=== PATIENT | female | born 1950 | race Caucasian/White ===

== ENCOUNTER → 2017-05-15 | Outpatient (CLI) | payer BC ==
[2016-02-25 11:00] VITALS: BP 117/71
[~2017-05-15] MED LIST: ASPI-630 PO; ATOR40TA59 PO; FEXO180T16 PO; FLUO40CA2 PO
--- NOTE | 2017-05-16 09:09 | KCIC ---
DATE: 05/15/2017 EXAM: MAMMO MARSHALL SCREENING BILATERAL HISTORY: Screening COMPARISON: One year earlier This study was interpreted with the benefit of Computerized Aided Detection (CAD). FINDINGS: Breast Density: SCATTERED The breast parenchyma shows scattered fibroglandular densities. Breast parenchyma level B. There has been little change when compared to the previous exam IMPRESSION: Benign finding BI-RADS CATEGORY: 2 BENIGN FINDING(S) RECOMMENDED FOLLOW-UP: 12M 12 MONTH FOLLOW-UP PQRS compliance statement: Patient information was entered into a reminder system with a target due date 05/15/2018 for the next mammogram. Mammography is a sensitive method for finding small breast cancers, but it does not detect them all and is not a substitute for careful clinical examination. A negative mammogram does not negate a clinically suspicious finding and should not result in delay in biopsying a clinically suspicious abnormality. "Our facility is accredited by the [employer] Mammography Program."
== END | disposition home or self-care (01) ==
LOC: KCIC MAMMO 15:52
PROVIDERS: ATTEND Family Medicine
DX: Z12.31 Encounter for screening mammogram for malignant neoplasm of breast (principal)
CPT/HCPCS: 77063; G0202; 77067

== ENCOUNTER → 2018-02-20 | Outpatient (CLI) | payer BC | END | disposition home or self-care (01) | LOC: KCIC 12:23 | DX: S92.424A Nondisplaced fracture of distal phalanx of right great toe, initial encounter for closed fracture (principal); E78.00 Pure hypercholesterolemia, unspecified; Z90.49 Acquired absence of other specified parts of digestive tract; X58.XXXA Exposure to other specified factors, initial encounter; Y93.89 Activity, other specified; Y92.89 Other specified places as the place of occurrence of the external cause; Y99.8 Other external cause status | CPT/HCPCS: 73660 ==

== ENCOUNTER → 2018-06-12 | Outpatient (CLI) | payer BC, MEDICARE ==
[2016-02-25 11:00] VITALS: BP 117/71
--- NOTE | 2018-06-12 17:44 | KCIC ---
Bilateral digital screening mammograms with 3-D tomosynthesis: Reason for examination: Routine screening. Comparison is made to previous studies dated 05/15/2017 and 05/10/2016. Bilateral mammograms in CC and oblique projections were obtained with 2-D imaging and 3-D tomosynthesis imaging on a Siemens Inspiration unit and reviewed on the workstation. Interpretation was made with the benefit of CAD. The skin and nipples show no abnormalities. No abnormal axillary lymph nodes are seen. The breast parenchyma shows scattered fatty and fibroglandular density. (Breast density: Category B.) There continues to be a small nodule at the 2:00 B position of the left breast which is stable. There are no new dominant masses, suspicious calcifications or architectural distortion. Benign calcifications are present. Impression: No evidence of malignancy. Recommend routine screening. BI-RAD Category 2: Benign. "Our facility is accredited by the [employer] Mammography Program." This patient's information has been entered into a reminder system for the patient to be notified with the results of her examination and a target date for the next mammogram. Electronically signed by: Nina Garrett MD (06/12/2018 5:41 PM) [facility]
== END | disposition home or self-care (01) ==
LOC: KCIC MAMMO 08:32
PROVIDERS: ATTEND Family Medicine
DX: Z12.31 Encounter for screening mammogram for malignant neoplasm of breast (principal)
CPT/HCPCS: 77063; 77067

== ENCOUNTER → 2019-06-17 | Outpatient (CLI) | payer BC ==
[2016-02-25 11:00] VITALS: BP 117/71
--- NOTE | 2019-06-17 19:21 | KCIC ---
Bilateral digital screening mammograms with 3-D tomosynthesis: Reason for examination: Routine screening. Comparison is made to previous studies dated 06/12/2018 and 05/15/2017. Bilateral mammograms in CC and oblique projections were obtained with 2-D imaging and 3-D tomosynthesis imaging on a Siemens Inspiration unit and reviewed on the workstation. Interpretation was made with the benefit of CAD. The skin and nipples show no abnormalities. No abnormal axillary lymph nodes are seen. The breast parenchyma shows scattered fatty and fibroglandular density. (Breast density: Category B.) There continue to be small nodular parenchymal densities in the left breast which have not changed. There are no new dominant masses, suspicious calcifications or architectural distortion. Benign calcifications are present. Impression: No evidence of malignancy. Recommend routine screening. BI-RAD Category 2: Benign. "Our facility is accredited by the [employer] Mammography Program." This patient's information has been entered into a reminder system for the patient to be notified with the results of her examination and a target date for the next mammogram. Electronically signed by: Nina Garrett MD (06/17/2019 7:18 PM) [facility]
== END | disposition home or self-care (01) ==
LOC: KCIC MAMMO 12:49
PROVIDERS: ATTEND Family Medicine
DX: Z12.31 Encounter for screening mammogram for malignant neoplasm of breast (principal); N64.89 Other specified disorders of breast
CPT/HCPCS: 77063; 77067

== ENCOUNTER 2019-08-08 03:58 | Inpatient (IN) | payer BC ==
[~2019-08-08] VITALS: Ht 165.1 cm; Wt 119.3 kg
--- NOTE | 2019-08-08 04:55 | PHYS DOC ---
Past Medical History Past Medical History: CAD, Depression, High Cholesterol, Heart Disease, Hypertension, Other Additional Past Medical Histor: sleep apnea Past Surgical History: Cholecystectomy, Other Additional Past Surgical Histo: breast biopsy, cardiac cath with stent placement Additional Information: Never smoker Alcohol Use: Rarely Drug Use: None Adult General Chief Complaint Chief Complaint: LOWER EXT PAIN HPI HPI Patient is a 68 year old F with history of HTN, heart Dz, HLD presents to the ED with left LE swelling and pain. Onset: 2 days ago. Patient states that the calf pain is 2/10 currently and describes it as a throbbing pain. Pt denies chills, fever, CP, ab pain. Pt reports that she is sedentary and has baseline SOB, but denies any history of clots. Pt denies calf redness, warmth, or trauma to the area. Review of Systems Review of Systems Constitutional: Denies fever or chills Eyes: Denies redness or eye pain HENT: Denies nasal congestion or sore throat Respiratory: Reports shortness of breath Cardiovascular: Denies chest pain or palpitations GI: Denies abdominal pain, nausea, or vomiting : Denies dysuria or hematuria Musculoskeletal: Denies back pain or joint pain. Reports left calf pain. Integument: Denies rash or skin lesions Neurologic: Denies headache, focal weakness or sensory changes Complete systems were reviewed and found to be within normal limits, except as documented in this note. Current Medications Current Medications Current Medications Medications (Trade) Dose Ordered Sig/Hossein Start Time Stop Time Status Last Admin Dose Admin Sodium Chloride 1,000 ml @ 1,000 mls/hr 1X ONCE 08/08/19 05:00 08/08/19 05:59 08/08/19 05:28 1,000 MLS/HR Allergies Allergies Allergies Uncoded Allergies Type Severity Reaction Last Updated Verified excedrin Allergy Intermediate rash 02/23/16 Physical Exam Physical Exam Constitutional: Well developed, well nourished, no acute distress, non-toxic appearance HENT: Normocephalic, atraumatic, oropharynx moist Eyes: Conjunctiva normal, no discharge Neck: Normal range of motion, no tenderness, supple Cardiovascular: Heart rate normal, regular rhythm, 2+ DP and PT pulses b/l Lungs & Thorax: Bilateral breath sounds clear to auscultation, no wheezing Abdomen: Soft, no tenderness Skin: Warm, dry, no erythema, no rash Extremities: No tenderness, ROM intact, no edema, mild tenderness to palpation of left posterior calf, no erythema or deformity noted. Neurologic: Alert and oriented X 3, normal motor function, normal sensory function, no focal deficits noted Psychologic: Affect normal, judgement normal, mood normal Current Patient Data Vital Signs Vital Signs Date Time Temp Pulse Resp B/P (MAP) Pulse Ox O2 Delivery O2 Flow Rate FiO2 08/08/19 04:20 97.9 69 14 155/92 (113) 95 Room Air 97.9 Lab Values Laboratory Tests Test 08/08/19 04:40 08/08/19 05:05 Sodium Level 139 mmol/L (136-145) Potassium Level 4.4 mmol/L (3.5-5.1) Chloride Level 101 mmol/L (98-107) Carbon Dioxide Level 29 mmol/L (21-32) Anion Gap 9 (6-14) Blood Urea Nitrogen 18 mg/dL (7-20) Creatinine 0.9 mg/dL (0.6-1.0) Estimated GFR (Cockcroft-Gault) 61.9 BUN/Creatinine Ratio 20 (6-20) Glucose Level 140 mg/dL (70-99) H Calcium Level 8.8 mg/dL (8.5-10.1) Magnesium Level 1.9 mg/dL (1.8-2.4) Total Bilirubin 0.5 mg/dL (0.2-1.0) Aspartate Amino Transferase (AST) 25 U/L (15-37) Alanine Aminotransferase (ALT) 24 U/L (14-59) Alkaline Phosphatase 136 U/L (46-116) H Creatine Kinase 86 U/L (26-192) Creatine Kinase MB (Mass) < 0.5 ng/mL (0.0-3.6) Creatine Kinase MB Relative Index % (0-4) Troponin I Quantitative < 0.017 ng/mL (0.000-0.055) BZ-Mxj-J-Type Natriuretic Peptide 87 pg/mL (0-124) Total Protein 6.5 g/dL (6.4-8.2) Albumin 3.4 g/dL (3.4-5.0) Albumin/Globulin Ratio 1.1 (1.0-1.7) White Blood Count 7.0 x10^3/uL (4.0-11.0) Red Blood Count 4.67 x10^6/uL (3.50-5.40) Hemoglobin 13.3 g/dL (12.0-15.5) Hematocrit 39.9 % (36.0-47.0) Mean Corpuscular Volume 86 fL (79-100) Mean Corpuscular Hemoglobin 29 pg (25-35) Mean Corpuscular Hemoglobin Concent 33 g/dL (31-37) Red Cell Distribution Width 13.8 % (11.5-14.5) Platelet Count 128 x10^3/uL (140-400) L Neutrophils (%) (Auto) 64 % (31-73) Lymphocytes (%) (Auto) 21 % (24-48) L Monocytes (%) (Auto) 8 % (0-9) Eosinophils (%) (Auto) 6 % (0-3) H Basophils (%) (Auto) 1 % (0-3) Neutrophils # (Auto) 4.5 x10^3/uL (1.8-7.7) Lymphocytes # (Auto) 1.5 x10^3/uL (1.0-4.8) Monocytes # (Auto) 0.6 x10^3/uL (0.0-1.1) Eosinophils # (Auto) 0.4 x10^3/uL (0.0-0.7) Basophils # (Auto) 0.1 x10^3/uL (0.0-0.2) Prothrombin Time 13.6 SEC (11.7-14.0) Prothrombin Time INR 1.1 (0.8-1.1) Activated Partial Thromboplast Time 28 SEC (24-38) D-Dimer (Ramona) 3.68 ug/mlFEU (0.00-0.50) H Laboratory Tests 08/08/19 05:05 Laboratory Tests 08/08/19 04:40 EKG EKG @0502, NSR at 66bpm, No STEMI. Radiology/Procedures Radiology/Procedures PROCEDURE: VENOUS LOWER EXTREMITY LEFT Left lower extremity venous duplex Doppler ultrasound HISTORY: Left leg pain and swelling. FINDINGS: No DVT by grayscale imaging with compressibility, patent color Doppler blood flow and augmentation of blood flow of the left common femoral vein, profunda femoral vein, superficial femoral vein and popliteal vein. No DVT with patent color Doppler blood flow the left posterior tibial and peroneal veins. IMPRESSION: Negative left leg for DVT. Electronically signed by: Roverto Goldman MD (08/08/2019 5:33 AM) [facility] Course & Med Decision Making Course & Med Decision Making Pertinent Labs and Imaging studies reviewed. (See chart for details) Pt is a 68yo female with h/o HTN, Heart Dz, HLD presents with left calf pain and swelling for 2 days. Pt also endorses SOB, cold and cough symptoms and sedentary life style. Cannot exclude DVT and PE. Venous Doppler US negative. Ddimer elevated at 3, CTA chest pending. Troponin WNL. EKG stable. HEART score 4. Sign out given to Dr. Kuo for further evaluation and final disposition. Discussed current findings and plan with patient and family, who acknowledge understanding and agreement. Dragon Disclaimer Dragon Disclaimer This electronic medical record was generated, in whole or in part, using a voice recognition dictation system. Departure Departure Impression: Primary Impression: Leg pain Additional Impression: Shortness of breath Referrals: PEDRO LUIS CAMPOS MD (PCP) The HEART Score for CP Pts HEART Score for Chest Pain: HEART Score for Chest Pain Response (Comments) Value History Slighlty/Non-Suspicious 0 ECG Normal 0 Age > 65 2 Risk Factors >3 Risk Factors or Hx CAD 2 Troponin < Normal Limit 0 Total 4 Risk Factors: Risk Factors: DM, Current or recent (<one month) smoker, HTN, HLP, family history of CAD, obesity. Risk Scores: Score 0 - 3: 2.5% MACE over next 6 weeks - Discharge Home Score 4 - 6: 20.3% MACE over next 6 weeks - Admit for Clinical Observation Score 7 - 10: 72.7% MACE over next 6 weeks - Early Invasive Strategies Problem Qualifiers Primary Impression: Leg pain Laterality: left Qualified Codes: M79.605 - Pain in left leg TOYIN RAJAN DO Aug 08, 2019 04:55
[2019-08-08] MEDS ORDERED: IV NORMAL SALINE 1000ML BAG 1,000 ML IV ONE (05:00)
[2019-08-08 05:09] LABS: CALCIUM 8.8 mg/dL (8.5-10.1); CREATININE 0.9 mg/dL (0.6-1.0); GFR 61.9; POTASSIUM 4.4 mmol/L (3.5-5.1)
[2019-08-08 05:15] LABS: ALBUMIN 3.4 g/dL (3.4-5.0); ALBUMIN/GLOBULIN RATIO 1.1 (1.0-1.7); MAGNESIUM 1.9 mg/dL (1.8-2.4); TOTAL BILIRUBIN 0.5 mg/dL (0.2-1.0); TOTAL PROTEIN 6.5 g/dL (6.4-8.2)
[2019-08-08 05:18] LABS: BASO # 0.1 x10^3/uL (0.0-0.2); BASO % 1 % (0-3); EOS # 0.4 x10^3/uL (0.0-0.7); EOS % 6 % (0-3); HEMATOCRIT 39.9 % (36.0-47.0); HEMOGLOBIN 13.3 g/dL (12.0-15.5); LYMPH # 1.5 x10^3/uL (1.0-4.8); LYMPH % 21 % (24-48); MEAN CORPUSCULAR HEMOGLOBIN 29 pg (25-35); MEAN CORPUSCULAR HGB CONC 33 g/dL (31-37); MEAN CORPUSCULAR VOLUME 86 fL (79-100); MONO # 0.6 x10^3/uL (0.0-1.1); MONO % 8 % (0-9); NEUT # 4.5 x10^3/uL (1.8-7.7); NEUT % 64 % (31-73); PLATELET COUNT 128 x10^3/uL (140-400); RED BLOOD COUNT 4.67 x10^6/uL (3.50-5.40); RED CELL DISTRIBUTION WIDTH 13.8 % (11.5-14.5)
[2019-08-08 05:29] LABS: PROTHROMBIN TIME PATIENT 13.6 SEC (11.7-14.0)
[2019-08-08 05:33] LABS: CREATINE KINASE 86 U/L (26-192)
--- NOTE | 2019-08-08 05:36 | RAD ---
Left lower extremity venous duplex Doppler ultrasound HISTORY: Left leg pain and swelling. FINDINGS: No DVT by grayscale imaging with compressibility, patent color Doppler blood flow and augmentation of blood flow of the left common femoral vein, profunda femoral vein, superficial femoral vein and popliteal vein. No DVT with patent color Doppler blood flow the left posterior tibial and peroneal veins. IMPRESSION: Negative left leg for DVT. Electronically signed by: Roverto Goldman MD (08/08/2019 5:33 AM) [facility] [place]
[2019-08-08 05:40] LABS: D-DIMER 3.68 ug/mlFEU (0.00-0.50)
[2019-08-08] MEDS ORDERED: IOHEXOL 350 MG/ML 100 ML VIAL. IV ONE (06:15)
[2019-08-08] MEDS ORDERED: CONTRAST GIVEN. MC PRN (06:15)
--- NOTE | 2019-08-08 06:50 | EKG ---
[facility] [address] [place] [address] Test Date: 2019-08-08 Test Time: 05:02:19 Pat Name: FÉLIX PRICE Department: Room: Gender: F Security Tech: : [id number] Requested By: TOYIN RAJAN Order Number: [id number] Reading MD: Measurements Intervals [place] Rate: 65 P: 52 ID: [id number] QRS: 15 QRSD: 86 T: 14 QT: 424 QTc: 446 Interpretive Statements SINUS RHYTHM NON SPECIFIC T ABNORMALITY BORDERLINE ECG No previous ECG available for comparison
--- NOTE | 2019-08-08 07:05 | RAD ---
CT angiography chest with contrast PQRS statement: CT scans at this facility use dose reduction including either automated exposure control, iterative reconstructions, and /or weight based radiation dosing via mA and kV modification when appropriate to reduce radiation dose to as low as reasonably achievable. Contrast: 100 mL Omnipaque 350 intravenous contrast. 3-D MIP reconstructions of the pulmonary arteries were acquired. HISTORY: Chest pain, shortness of breath and elevated d-dimer. FINDINGS: Peripheral lobar pulmonary artery emboli involving the bilateral lower lobes at the basilar left lower lobe arterial branches in the right lower lobe superior segment branch. No large central pulmonary artery embolus central laya or saddle embolus. Heart size normal. Left coronary calcified plaque. Esophagus unremarkable. Aortic arch calcified plaque. No adenopathy in the chest. Small punctate density left breast likely a biopsy clip. 3 mm right apical upper lobe pulmonary nodule image 26. 4 mm right upper lobe nodule image 32. Right middle lobe 4 mm nodule image 92. 4 mm right lower lobe nodule at the major fissure image 73. No pleural effusions. Bones are unremarkable. IMPRESSION: 1. Peripheral lobar pulmonary artery emboli to the lower lobes as described above. 2. Pulmonary nodules largest measuring 4 mm. Per Fleischner guidelines if the patient has risk factors for malignancy optional CT follow-up in 12 months would be advised. FOR INTERNAL CODING PURPOSES Critical result: Critical results called to Dr. Kuo in the emergency department at 08/08/2019 7:01 AM. RESULT CODE: (C) Electronically signed by: Roverto Goldman MD (08/08/2019 7:02 AM) [facility]
[2019-08-08] MEDS ORDERED: RIVAROXABAN 15 MG TABLET. PO ONE (08:00)
[2019-08-08] MEDS: IPRATRPIUM/ALBUTEROL 0.5/2.5MG 3 ML NEBU. NEB SCH ×4 (08:30→19:41)
[2019-08-08] MEDS ORDERED: FLUoxetine HCL 20 MG CAPSULE PO SCH (09:00)
--- NOTE | 2019-08-08 09:20 | PDOC ---
Provider Note Provider Note [id number] GODFREY OCAMPO MD Aug 08, 2019 09:20
--- NOTE | 2019-08-08 09:33 | HP ---
ADMIT DATE: 08/08/2019 CHIEF COMPLAINT: Shortness of breath. HISTORY OF PRESENT ILLNESS: A 68-year-old white female has a history of mild asthma, coronary artery disease and chronic anxiety and came in with 2 days of pain in her left leg that has gotten worse. She had mild dyspnea as well recently, but no overt chest pain, hemoptysis, fever, chills or other complaints. She just finished a course of prednisone and bronchodilators for viral-induced cough and wheezing. D-dimer was elevated. Sono was negative in the leg with CT scan showed evidence of bilateral pulmonary emboli. Xarelto was started and she was admitted for further evaluation. PAST MEDICAL HISTORY: She has had coronary stents in 2005. No coronary problems since then. She takes Zoloft for anxiety, propranolol for mild anxiety as well and a daily aspirin. She is on rosuvastatin for lipids. SOCIAL HISTORY: Nonsmoker, nondrinker. She is physically very inactive. She is not employed. FAMILY HISTORY: Unremarkable. REVIEW OF SYSTEMS: No other specific complaints. OBJECTIVE: ENT: All within normal limits. NECK: No masses, nodes or bruits. LUNGS: Few expiratory wheezes. No tachypnea, no rales or rub. CARDIOVASCULAR: Regular rate. No irregular beat, murmur or tachycardia. ABDOMEN: Obese, soft, benign and nontender. EXTREMITIES: Mildly tender in the left calf. No edema. No joint or skin lesions. Good pedal pulses. NEUROLOGIC: Physiologic. ASSESSMENT: Bilateral pulmonary emboli, likely secondary to sedentary lifestyle. No sign of prior clot problems. Her coronary artery disease is stable and in the past she had mild reactive airway disease as well. PLAN: Continue Xarelto and current treatments. She will see the new wage analyst today as a consult as she was planning to do as an outpatient as Dr. Rouse has retired. GODFREY OCAMPO MD DR: MARCUS/armida JOB#: [id number] / [id number]
[2019-08-08] MEDS ORDERED: CRESTOR5 MG PO (09:37)
[2019-08-08] MEDS ORDERED: FURO-68 PO (09:37)
[2019-08-08] MEDS ORDERED: PROP20TA PO (09:37)
[2019-08-08] MEDS ORDERED: SERT100T PO (09:37)
[2019-08-08] MEDS ORDERED: POTA20TA4 PO (09:37)
[2019-08-08] MEDS ORDERED: OMEP20TA63 PO (09:37)
[2019-08-08 09:39] VITALS: BP 123/63
[2019-08-08 11:00] VITALS: BP 127/58
--- NOTE | 2019-08-08 12:20 | CARD ---
MR#: [id number] Date of Study: 08/08/2019 Ordering Physician: DARSHAN MOTLEY, Referring Physician: DARSHAN MOTLEY, Tech: Tamiko Caballero APPROVED REPORT EXAM: Two-dimensional and M-mode echocardiogram with Doppler and color Doppler. INDICATION Dyspnea 2D DIMENSIONS RVDd3.0 (2.9-3.5cm)Left Atrium(2D)4.0 (1.6-4.0cm) IVSd1.0 (0.7-1.1cm)Aortic Root(2D)3.1 (2.0-3.7cm) LVDd5.8 (3.9-5.9cm)LVOT Diameter2.1 (1.8-2.4cm) PWd1.3 (0.7-1.1cm)LVDs3.5 (2.5-4.0cm) FS (%) 40.7 %SV119.0 ml LVEF(%)70.7 (>50%) Aortic Valve AoV Peak Magdaleno.125.5cm/sAoV VTI30.7cm AO Peak GR.6.3mmHgLVOT VTI 19.84cm AO Mean GR.5mmHg Mitral Valve MV E Byzvkpdf29.7cm/sMV E Peak Gr.3mmHg MV DECEL [id number] A Fiytcyml00.3cm/s MV E Mean Gr.1mmHgE/A Ratio0.7 TDI Lateral E' P. V7.53cm/sMedial E' P. V6.82cm/s E/Lateral E'8.3E/Medial E'9.2 Tricuspid Valve TR P. [id number]/sRAP [id number] TR Peak Gr.26ecYzONVE58vxFg Pulmonary Vein S1 Pjotufus27.4cm/sS2 Biqvprmt65.91cm/s D2 Neadworj04.9cm/sPVa [id number] LEFT VENTRICLE The left ventricle is normal size. There is borderline to mild concentric left ventricular hypertroph y. The left ventricular systolic function is normal. The ejection fraction is estimated at 65%. There is normal LV segmental wall motion. Transmitral Doppler flow pattern is Grade I-abnormal relaxation pattern. RIGHT VENTRICLE The right ventricle is normal size. There is normal right ventricular wall thickness. The right ventr icular systolic function is normal. ATRIA The left atrium size is normal. The right atrium size is normal. Interatrial septum not well visualiz ed. AORTIC VALVE The aortic valve is normal in structure and function. Doppler and Color Flow revealed no significant aortic regurgitation. There is no significant aortic valvular stenosis. MITRAL VALVE The mitral valve is normal in structure and function. There is no evidence of mitral valve prolapse. There is no mitral valve stenosis. Doppler and Color Flow revealed no mitral valve regurgitation note d. TRICUSPID VALVE The tricuspid valve is normal in structure and function. Doppler and Color Flow revealed trace tricus pid regurgitation with an estimated PAP of 23 mmHg. There is no tricuspid valve stenosis. PULMONIC VALVE The pulmonic valve is not well visualized. Doppler and Color Flow revealed trace pulmonic valvular re gurgitation. GREAT VESSELS The aortic root is normal in size. The IVC was not well visualized. PERICARDIAL EFFUSION There is no evidence of significant pericardial effusion. Critical Notification Critical Value: No <Conclusion> The left ventricular systolic function is normal. The ejection fraction is estimated at 65%. There is normal LV segmental wall motion. Transmitral Doppler flow pattern is Grade I-abnormal relaxation pattern. Trace tricuspid regurgitation with an estimated PAP of 23 mmHg. There is no evidence of significant pericardial effusion. Signed by : Tony Hernández, Electronically Approved : 08/08/2019 12:19:59
--- NOTE | 2019-08-08 13:48 | CONS ---
DATE OF CONSULTATION: PULMONARY CONSULTATION ATTENDING PHYSICIAN: Noel Harding MD REASON FOR CONSULTATION: Pulmonary emboli and asthma and cough. HISTORY OF PRESENT ILLNESS: The patient is a 68-year-old obese patient with a BMI of 39. The patient has history of asthma. She states that it usually flares up during the wintertime. She also has been coughing since June. The cough is usually worse at night. Although, the intensity has improved. She only takes albuterol inhaler. She was complaining of some leg pain. As a result, she had some mild dyspnea, although she said that the dyspnea is chronic. No chest pain, no hemoptysis, no syncope, no headaches, no nausea, vomiting, no diarrhea. Her D-dimer was elevated. Her venous Dopplers were negative. A CT scan was done and was reviewed by me and shows small bilateral pulmonary emboli involving the lower lobes. She has put on 20 pounds in the last 1 year. She does not have any surgeries. However, she does have family history of ovarian cancer and breast cancer in her mother. PAST MEDICAL HISTORY: Significant for history of coronary artery disease with stents in 2005. History of anxiety. History of obesity. Hyperlipidemia. PAST SURGICAL HISTORY: No recent surgery. ALLERGIES: EXCEDRIN. SOCIAL HISTORY: Nonsmoker. She has a sedentary lifestyle. FAMILY HISTORY: Mother had breast and ovarian cancer. REVIEW OF SYSTEMS: Twelve-point system obtained. Pertinent positives discussed in my history of present illness, otherwise noncontributory. All systems that were negative were reviewed as well. PHYSICAL EXAMINATION: VITAL SIGNS: Reviewed. They are stable. Pulse ox 94% on room air. NECK: Supple. LUNGS: Clear. CARDIOVASCULAR: Regular rate and rhythm. ABDOMEN: Soft, nontender, obese. EXTREMITIES: With no pitting edema. LABORATORY DATA: Reviewed. White cell count 7.0, hemoglobin 13.3. BUN and creatinine 18 and 0.9. IMPRESSION: 1. Acute pulmonary emboli involving the lower lobes. The clot burden is minimal. She was essentially asymptomatic. The obvious risk factor appears to be 20-pound weight gain and a sedentary lifestyle. She has no known cancers. However, she does have a family history of breast and ovarian cancer in her mother. Her mammograms have been negative in the past, but she should be scanned for any malignancy below the diaphragm. She is not on any hormone replacement. 2. Asthma and chronic cough since June. Likely manifestation of reactive airway disease with some superimposed viral infection. She would benefit from addition of steroid inhaler. 3. Underlying obesity and suspected obstructive sleep apnea. RECOMMENDATIONS: 1. Continue with Xarelto. 2. Would need at least minimum of 3-6 months of anticoagulation, pending weight loss and more physical activity in future. 3. CT abdomen and pelvis to rule out any occult malignancy. 4. Continue DuoNebs. 5. Add Pulmicort and at discharge I have given her Breo Ellipta to help improve her cough and better control of her asthma. 6. Weight loss is advised. 7. Could be discharged in 24 hours. RAMAN PRICE MD DR: TONNY/armida JOB#: [id number] / [id number]
[2019-08-08] MEDS ORDERED: ANTI-COAG MONITOR BY PHARMACY. MC PRN (14:00)
[2019-08-08 15:00] VITALS: BP 123/59
[2019-08-08] MEDS: SERTRALINE 50 MG TABLET. PO SCH (18:13)
[2019-08-08] MEDS: RIVAROXABAN 15 MG TABLET. PO SCH (18:13)
[2019-08-08] MEDS: ATORVASTATIN CALCIUM 40 MG TABLET. PO SCH (18:13)
[2019-08-08 19:00] VITALS: BP 115/60
[2019-08-08] MEDS: BUDESONIDE 0.5 MG/2 ML NEBU. NEB SCH (19:41)
[2019-08-08 23:00] VITALS: BP 123/60
[2019-08-09 03:00] VITALS: BP 147/73
[2019-08-09 07:00] VITALS: BP 152/73
[2019-08-09] MEDS ORDERED: IOHEXOL 300 MG/ML 100ML VIAL. IV ONE (07:00)
[2019-08-09] MEDS ORDERED: IOHEXOL 240 MG/ML 50ML VIAL. PO ONE (07:00)
[2019-08-09] MEDS: BUDESONIDE 0.5 MG/2 ML NEBU. NEB SCH (08:00)
--- NOTE | 2019-08-09 08:41 | PDOC ---
Provider Note Provider Note [id number] GODFREY OCAMPO MD Aug 09, 2019 08:41
--- NOTE | 2019-08-09 09:46 | DS ---
DATE OF DISCHARGE: 08/09/2019 HOSPITAL SUMMARY: The patient is a 68-year-old white female who came in with some mild dyspnea and cough and D-dimer was elevated, so CTA was done, which showed bilateral peripheral pulmonary emboli to the lower lobes and no other suspicious findings. Doppler sonogram of the left leg was negative, even though she had pain in the leg. CBC was normal with a mildly low platelet count of 128,000. Chemistry profile showed a blood sugar of 140, otherwise unremarkable. Cardiac enzymes were normal as well. She was given oral Xarelto from the admission and has done well with good saturation on room air and no symptoms. She is having a CT scan this morning per Dr. Kramer to rule out the possibility of any intra-abdominal malignancy as the source of these emboli, but she has a very sedentary lifestyle and this is more likely the source of the emboli. There is a family history of [employer] cancers present. She will be discharged after the CT scan is accomplished. FINAL DIAGNOSES: 1. Acute bilateral lower lobe pulmonary emboli. 2. Mild thrombocytopenia, idiopathic. OPERATIONS, PROCEDURES, COMPLICATIONS: None. CONSULTATIONS: Dr. Kramer. DISPOSITION: She will take Xarelto 15 mg twice a day for 3 weeks, then 20 mg daily for a total of [address] report will be followed as an outpatient. Home meds remain the same. She is to become more physically active as she has been gaining weight as well and will need to consider following up with hemoglobin A1c given the mildly elevated blood sugar and also follow her platelets as well, they may be reactive to the pulmonary emboli. Office followup with Dr. Torrez or myself in 3 weeks to change the dose of Xarelto to the once day dosing. She may require steroid inhaler for asthma maintenance as her use of albuterol has been increasing. PROGNOSIS: Good. GODFREY OCAMPO MD DR: MARCUS/armida JOB#: [id number] / [id number]
--- NOTE | 2019-08-09 10:22 | RAD ---
CT study of the abdomen and pelvis with contrast Clinical indications: Pulmonary emboli. Chest pain and shortness of breath and elevated d-dimer. History of pulmonary nodules. Evaluation for malignancy. TECHNIQUE: After IV infusion of 75 cc of Omnipaque 300, helical CT scanning of the abdomen and pelvis was performed. GI contrast was administered per mouth. PQRS compliance Statement One or more of the following individualized dose reduction techniques were utilized for this study: 1. Automated exposure control 2. Adjustment of the mA and/or kV according to patient size 3. Use of iterative reconstruction technique COMPARISON: No previous abdomen/pelvis CT. FINDINGS: Both kidneys are normal without mass. The urinary bladder is not abnormally distended. Diffuse fatty infiltration of the liver is seen. The spleen is not abnormally enlarged. No adrenal mass is seen. Gallbladder is surgically absent. No extra hepatic biliary ductal dilatation is seen. No focal pancreatic mass is seen. There is an intraluminal nodule of the second portion of the duodenum adjacent to the pancreas which measures 11 mm. This is best seen on series 2 image 30 and images 28 and 29 series 4. No obstructive bowel pattern is seen. Colonic diverticulosis is seen without diverticulitis. No free air or free fluid or mesenteric edema is seen. No focal aneurysmal dilatation of the abdominal aorta is seen. No enlarged abdominal or pelvic lymphadenopathy is seen. No uterine mass is evident. No dominant ovarian cyst or mass is seen. No lytic process is seen. No lung base consolidation is seen. IMPRESSION: 11 mm intraluminal nodule of the second portion of the duodenum. No soft tissue mass is evident. No hepatic metastasis is evident. No enlarged abdominal or pelvic lymphadenopathy is seen. Sigmoid diverticulosis without diverticulitis. Diffuse fatty infiltration of the liver. Electronically signed by: Brendan Li MD (08/09/2019 10:20 AM) [id number]
[2019-08-09] MEDS: RIVAROXABAN 15 MG TABLET. PO SCH (10:23)
[2019-08-09] MEDS: SERTRALINE 50 MG TABLET. PO SCH (10:23)
[2019-08-09] MEDS: ATORVASTATIN CALCIUM 40 MG TABLET. PO SCH (10:23)
--- NOTE | 2019-08-09 11:40 | NUR ---
Pt discharged to home with . Discharge instructions reviewed. Both of them verbalized understanding. Received call from Dr Kramer after pt discharged. 11mm nodule noted in Duodenum. He asked that I notify Dr Harding and pt so she can follow up with GI. Message left for Dr Harding.
--- NOTE | 2019-08-09 11:41 | PDOC ---
PULMONARY PROGRESS NOTES Subjective no soa mild cough Vitals Vital Signs Date Time Temp Pulse Resp B/P (MAP) Pulse Ox O2 Delivery O2 Flow Rate FiO2 08/09/19 08:22 96 Room Air 08/09/19 07:00 98.1 69 18 152/73 (99) 98.1 ROS: No Chest Pain, No Increase Cough General: Alert, No acute distress Lungs: Clear Cardiovascular: S1 Abdomen: Soft Neuro Exam: Alert Extremities: No Edema Skin: Warm Labs Laboratory Tests Test 08/08/19 04:40 08/08/19 05:05 Sodium Level 139 mmol/L (136-145) Potassium Level 4.4 mmol/L (3.5-5.1) Chloride Level 101 mmol/L (98-107) Carbon Dioxide Level 29 mmol/L (21-32) Anion Gap 9 (6-14) Blood Urea Nitrogen 18 mg/dL (7-20) Creatinine 0.9 mg/dL (0.6-1.0) Estimated GFR (Cockcroft-Gault) 61.9 BUN/Creatinine Ratio 20 (6-20) Glucose Level 140 mg/dL (70-99) Calcium Level 8.8 mg/dL (8.5-10.1) Magnesium Level 1.9 mg/dL (1.8-2.4) Total Bilirubin 0.5 mg/dL (0.2-1.0) Aspartate Amino Transf (AST/SGOT) 25 U/L (15-37) Alanine Aminotransferase (ALT/SGPT) 24 U/L (14-59) Alkaline Phosphatase 136 U/L (46-116) Creatine Kinase 86 U/L (26-192) Creatine Kinase MB (Mass) < 0.5 ng/mL (0.0-3.6) Creatine Kinase MB Relative Index % (0-4) Troponin I Quantitative < 0.017 ng/mL (0.000-0.055) DO-Qvk-[id number]-Type Natriuretic Peptide 87 pg/mL (0-124) Total Protein 6.5 g/dL (6.4-8.2) Albumin 3.4 g/dL (3.4-5.0) Albumin/Globulin Ratio 1.1 (1.0-1.7) White Blood Count 7.0 x10^3/uL (4.0-11.0) Red Blood Count 4.67 x10^6/uL (3.50-5.40) Hemoglobin 13.3 g/dL (12.0-15.5) Hematocrit 39.9 % (36.0-47.0) Mean Corpuscular Volume 86 fL (79-100) Mean Corpuscular Hemoglobin 29 pg (25-35) Mean Corpuscular Hemoglobin Concent 33 g/dL (31-37) Red Cell Distribution Width 13.8 % (11.5-14.5) Platelet Count 128 x10^3/uL (140-400) Neutrophils (%) (Auto) 64 % (31-73) Lymphocytes (%) (Auto) 21 % (24-48) Monocytes (%) (Auto) 8 % (0-9) Eosinophils (%) (Auto) 6 % (0-3) Basophils (%) (Auto) 1 % (0-3) Neutrophils # (Auto) 4.5 x10^3/uL (1.8-7.7) Lymphocytes # (Auto) 1.5 x10^3/uL (1.0-4.8) Monocytes # (Auto) 0.6 x10^3/uL (0.0-1.1) Eosinophils # (Auto) 0.4 x10^3/uL (0.0-0.7) Basophils # (Auto) 0.1 x10^3/uL (0.0-0.2) Prothrombin Time 13.6 SEC (11.7-14.0) Prothromb Time International Ratio 1.1 (0.8-1.1) Activated Partial Thromboplast Time 28 SEC (24-38) D-Dimer (Ramona) 3.68 ug/mlFEU (0.00-0.50) Medications Active Scripts Medications Dose Route/Sig Max Daily Dose Days Date Category Zoloft (Sertraline Hcl) 100 Mg Tablet 1 Tab PO DAILY 08/08/19 Reported Propranolol Hcl 20 Mg Tablet 1 Tab PO BID 08/08/19 Reported Prilosec Otc (Omeprazole Magnesium) 20 Mg Tablet.dr 40 Mg PO DAILY 08/08/19 Reported Crestor (Rosuvastatin Calcium) 5 Mg Tablet 1 Tab PO DAILY 08/08/19 Reported Potassium Chloride (Potassium Chloride) 20 Meq Tablet.er 20 Meq PO PRN PRN 08/08/19 Reported Lasix (Furosemide) 40 Mg Tablet 1 Tab PO PRN PRN 30 08/08/19 Reported Fexofenadine Hcl 180 Mg Tablet 1 Tab PO DAILY 02/23/16 Reported Aspirin 81 Mg Tab.chew 1 Tab PO HS 02/23/16 Reported Impression . 1. Acute pulmonary emboli involving the lower lobes. The clot burden is minimal. She was essentially asymptomatic. The obvious risk factor appears to be 20-pound weight gain and a sedentary lifestyle. She has no known cancers. However, she does have a family history of breast and ovarian cancer in her mother. Her mammograms have been negative in the past, but she should be scanned for any malignancy below the diaphragm. She is not on any hormone replacement. 2. Asthma and chronic cough since June. Likely manifestation of reactive airway disease with some superimposed viral infection. She would benefit from addition of steroid inhaler. 3. Underlying obesity and suspected obstructive sleep apnea. Plan . 1. Continue with Xarelto. 2. Would need at least minimum of 3-6 months of anticoagulation, pending weight loss and more physical activity in future. 3. CT abdomen and pelvis reviewed. 11 mm duodenal nodule. will need op GI eval. d/w RN to inform DR Harding 4. Continue DuoNebs. 5. I have given her Breo Ellipta to help improve her cough and better control of her asthma. 6. Weight loss is advised. 7. f/u with me in Aug with CTA chest prior RAMAN PRICE MD Aug 09, 2019 11:41
== END 2019-08-09 12:16 | disposition home or self-care (01) | DRG 176 ==
LOC: ER 03:58 → 6 SOUTH 07:37
PROVIDERS: ADMIT Internal Medicine; ATTEND Internal Medicine
DX: I26.99 Other pulmonary embolism without acute cor pulmonale (principal); B34.9 Viral infection, unspecified; D69.6 Thrombocytopenia, unspecified; E11.9 Type 2 diabetes mellitus without complications; E66.9 Obesity, unspecified; E78.00 Pure hypercholesterolemia, unspecified; E78.5 Hyperlipidemia, unspecified; I10 Essential (primary) hypertension; F41.9 Anxiety disorder, unspecified; F32.9 Major depressive disorder, single episode, unspecified; I25.10 Atherosclerotic heart disease of native coronary artery without angina pectoris; J45.909 Unspecified asthma, uncomplicated; Z68.39 Body mass index [BMI] 39.0-39.9, adult; Z80.3 Family history of malignant neoplasm of breast; Z80.41 Family history of malignant neoplasm of ovary; Z82.49 Family history of ischemic heart disease and other diseases of the circulatory system; Z87.891 Personal history of nicotine dependence; Z95.5 Presence of coronary angioplasty implant and graft; Z79.899 Other long term (current) drug therapy
CPT/HCPCS: 36415; 71275; 74177; 80053; 82553; 83735; 83880; 84484; 85025; 85379; 85610; 85730; 93005; 93306; 93971; 94640; 94760; J7030; J7620; J7626; Q9966; Q9967; G0378

== ENCOUNTER → 2019-09-02 | Outpatient (CLI) | payer BC ==
[2019-08-09 07:00] VITALS: BP 152/73
[~2019-09-02] MED LIST changes: +CRESTOR5 MG PO; +FURO-68 PO; +OMEP20TA63 PO; +POTA20TA4 PO; +PROP20TA PO; +SERT100T PO
--- NOTE | 2019-09-02 14:06 | KCIC ---
INDICATION: Osteoporosis screening. Postmenopausal screening COMPARISON: 05/25/2017 TECHNIQUE: Bone densitometry was performed through the lumbar spine and left proximal femur. FINDINGS: Lumbar Spine: L1-4 BMD: 1.18 T-Score: 1.2 Increased by 1% from prior Femoral Neck: BMD: 0.8 T-Score: -1.2 Increased by 1% from prior IMPRESSION: 1. Lumbar spine falls within the normal range. 2. Femoral neck falls within the osteopenic range. Electronically signed by: Deep Harding MD (09/02/2019 2:03 PM) [facility] [place]
== END | disposition home or self-care (01) ==
LOC: KCIC DEXA 11:35
PROVIDERS: ATTEND Family Medicine
DX: Z13.820 Encounter for screening for osteoporosis (principal); M85.852 Other specified disorders of bone density and structure, left thigh
CPT/HCPCS: 77080

== ENCOUNTER → 2019-09-20 | Outpatient (CLI) | payer BC ==
[~2019-09-20] MED LIST changes: +CONTRAST GIVEN. MC PRN; +IOHEXOL 350 MG/ML 100 ML VIAL. IV ONE
--- NOTE | 2019-09-20 17:07 | RAD ---
Examination: CT ANGIOGRAPHY CHEST History: Pulmonary embolism follow-up Comparison/Correlation: 08/08/2019 CTA chest Findings: Axial images of the chest were obtained following IV contrast according to pulmonary arteriography protocol. Maximum intensity projection images were provided. Sagittal and coronal reformatted images were provided. Pulmonary arterial vasculature is normal. No infiltrate or pleural effusion. No enlarged thoracic lymph nodes. Mild centrilobular emphysematous involvement of the lung sequeira is present. Few punctate pulmonary nodules are again identified without change. Largest of these measures 0.4 cm diameter within the right middle lobe. Some of these appear to have high density as expected calcifications and as result this may represent calcified granulomas. Thoracic aorta is grossly unremarkable. Left circumflex coronary arterial calcification noted. Bony structures are unremarkable. Cholecystectomy noted. Impression: No pulmonary arterial thromboembolic disease. Resolution of previously evident thromboembolic disease. No change in pulmonary nodules. These appear to represent calcified granulomas. If there are significant risk factors, interval follow-up may be performed in one year. PQRS Compliance Statement: One or more of the following individualized dose reduction techniques were utilized for this examination: 1. Automated exposure control 2. Adjustment of the mA and/or kV according to patient size 3. Use of iterative reconstruction technique Electronically signed by: Albin Milligan MD (09/20/2019 5:04 PM) [id number]
== END | disposition home or self-care (01) ==
LOC: CT 09:52
PROVIDERS: ATTEND Internal Medicine Critical Care Medicine
DX: J43.2 Centrilobular emphysema (principal); R91.8 Other nonspecific abnormal finding of lung field; I25.10 Atherosclerotic heart disease of native coronary artery without angina pectoris; Z90.49 Acquired absence of other specified parts of digestive tract
CPT/HCPCS: 71275; Q9967

== ENCOUNTER → 2019-10-02 | Outpatient (CLI) | payer BC ==
[~2019-10-02] MED LIST changes: -CONTRAST GIVEN. MC PRN; -IOHEXOL 350 MG/ML 100 ML VIAL. IV ONE
--- NOTE | 2019-10-03 11:58 | SLEEP ---
DATE OF STUDY: 10/02/2019 SLEEP STUDY ATTENDING PHYSICIAN: Pedro Luis Torrez MD The patient is a 69-year-old who weighs 237 pounds with a BMI of 42. The patient's [place] score was 10. The patient had sleep study 10 years ago and was positive for EMELIA and has been on CPAP at home. This was another split night study. During the night study, the patient spent 418 minutes in bed and slept for 317 minutes with a sleep efficiency of 76%. Sleep latency was 11 minutes with a REM latency of 355 minutes. Sleep architecture showed increased stage 1 sleep, normal stage 2 sleep, normal slow wave and normal REM sleep. During the initial diagnostic portion of the study, the patient slept for 74 minutes. During that time, the patient had 6 mixed apneas, 2 obstructive apneas, no central apneas, and 28 hypopneas. The patient's AHI was 29 per hour. Supine AHI 34 per hour. REM sleep was not seen during the diagnostic portion. EKG monitoring revealed an average heart rate of 60 beats per minute, no sustained arrhythmias observed. Nocturnal oximetry study revealed a mean oxygen saturation of 93% with the lowest of 84%. A 50% time of oxygen saturation remained between 80% and 89%. No significant PLM seen. The patient met the criteria for CPAP initiation. It was started at 5 cm water and titrated up to 15 cm water. At the final pressure, the patient slept for 113 minutes. The patient had lateral REM sleep. The patient's AHI was reduced to 0 per hour and oxygen saturation remained above 88%. The patient used small size full face mask. IMPRESSION: 1. Moderate to severe obstructive sleep apnea. The patient has AHI of 29 per hour. REM sleep was not seen during the diagnostic portion of the study. 2. Nocturnal hypoxia secondary to obstructive sleep apnea, but resolved with CPAP. 3. No clinically significant periodic limb movements. RECOMMENDATIONS: 1. CPAP at 15 cm water completely eliminated the patient's sleep apnea and should be used on a nightly basis. 2. Follow up in 4-6 weeks to assess compliance with CPAP and to document clinical improvement. 3. Weight loss is strongly advised. 4. Avoid [employer] depressants. 5. Cautioned regarding driving until symptoms of sleep apnea resolve with the use of CPAP. RAMAN U. PRICE, MD DR: TONNY/armida JOB#: [id number] / [id number] PEDRO LUIS Tolliver MD
== END | disposition home or self-care (01) ==
LOC: SLPLAB 19:07
PROVIDERS: ATTEND Internal Medicine Critical Care Medicine
DX: G47.33 Obstructive sleep apnea (adult) (pediatric) (principal); R09.02 Hypoxemia
CPT/HCPCS: 95810

== ENCOUNTER 2019-10-11 16:37 | Emergency (ER) | payer BC ==
[~2019-10-11] VITALS: Ht 165.1 cm; Wt 112.0 kg
--- NOTE | 2019-10-11 17:24 | PHYS DOC ---
Past Medical History Past Medical History: CAD, Depression, High Cholesterol, Heart Disease, Hypertension, Other Additional Past Medical Histor: sleep apnea (TOYIN CARRILLO APRN) Past Surgical History: Cholecystectomy, Other Additional Past Surgical Histo: breast biopsy, cardiac cath with stent placement (TOYIN CARRILLO APRN) Smoking Status: Never Smoker Alcohol Use: Rarely Drug Use: None (TOYIN CARRILLO APRN) Attending Signature I have participated in the care of this patient and I have reviewed and agree with all pertinent clinical information above including history, exam, and recommendations. (VALERI VIGIL MD) Adult General Chief Complaint Chief Complaint: ASTHMA HPI HPI Patient is a 69 year old female who presents with shortness of breath is been increasingly getting worse over the last 10 days. The patient states she had a blood clot back in July and is on Xarelto. The patient states has been having hot and cold chills, fatigue, body aches, cough, runny nose. The patient had a 99 degrees temperature on arrival to the ER. Denies any sick contacts with exception of being around her who is been at [facility] recently. She states that she talked to her primary care doctor who is worried that she might have pneumonia. Complete ROS were reviewed and found to be within normal limits, except as documented in the HPI (TOYIN CARRILLO APRN) Review of Systems Review of Systems Constitutional: Reports body aches. Eyes: Denies change in visual acuity, redness, or eye pain [] HENT: Reports runny nose, congestion, and sore throat [] Respiratory: Reports cough and shortness of breath [] Cardiovascular: No additional information not addressed in HPI [] GI: Denies abdominal pain, nausea, vomiting, bloody stools or diarrhea [] : Denies dysuria or hematuria [] Musculoskeletal: Denies back pain or joint pain [] Integument: Denies rash or skin lesions [] Neurologic: Denies headache, focal weakness or sensory changes [] Endocrine: Denies polyuria or polydipsia [] Complete systems were reviewed and found to be within normal limits, except as documented in this note. (TOYIN CARRILLO APRN) Current Medications Current Medications Current Medications Medications (Trade) Dose Ordered Sig/Hossein Start Time Stop Time Status Last Admin Dose Admin Albuterol Sulfate (Ventolin Neb Soln) 2.5 mg 1X ONCE 10/11/19 17:30 3/13/20 17:31 DC 10/11/19 17:28 2.5 MG (VALERI VIGIL MD) Allergies Allergies Allergies Coded Allergies Type Severity Reaction Last Updated Verified acetaminophen Allergy Unknown 08/08/19 Yes caffeine Allergy Unknown 08/08/19 Yes (VALERI VIGIL MD) Physical Exam Physical Exam Constitutional: Well developed, well nourished, no acute distress, non-toxic appearance. [] HENT: Normocephalic, atraumatic, bilateral external ears normal, oropharynx moist, no oral exudates, nose normal. [] Eyes: PERRLA, EOMI, conjunctiva normal, no discharge. [] Neck: Normal range of motion, no tenderness, supple, no stridor. [] Cardiovascular:Heart rate regular rhythm, no murmur [] Lungs & Thorax: Bilateral breath sounds have rhonchi diffusely. Neurologic: Alert and oriented X 3, normal motor function, normal sensory function, no focal deficits noted. [] Psychologic: Affect normal, judgement normal, mood normal. [] (TOYIN CARRILLO APRN) Current Patient Data Vital Signs Vital Signs Date Time Temp Pulse Resp B/P (MAP) Pulse Ox O2 Delivery O2 Flow Rate FiO2 10/11/19 20:00 76 20 97 Room Air 10/11/19 17:37 99.0 172/74 (106) 99.0 (VALERI VIGIL MD) Lab Values Laboratory Tests Test 10/11/19 17:45 10/11/19 17:58 10/11/19 18:50 Influenza Type A Antigen Negative (NEGATIVE) Influenza Type B Antigen Negative (NEGATIVE) White Blood Count 8.9 x10^3/uL (4.0-11.0) Red Blood Count 5.27 x10^6/uL (3.50-5.40) Hemoglobin 15.3 g/dL (12.0-15.5) Hematocrit 44.6 % (36.0-47.0) Mean Corpuscular Volume 85 fL (79-100) Mean Corpuscular Hemoglobin 29 pg (25-35) Mean Corpuscular Hemoglobin Concent 34 g/dL (31-37) Red Cell Distribution Width 15.0 % (11.5-14.5) H Platelet Count 162 x10^3/uL (140-400) Neutrophils (%) (Auto) 72 % (31-73) Lymphocytes (%) (Auto) 17 % (24-48) L Monocytes (%) (Auto) 7 % (0-9) Eosinophils (%) (Auto) 4 % (0-3) H Basophils (%) (Auto) 1 % (0-3) Neutrophils # (Auto) 6.4 x10^3/uL (1.8-7.7) Lymphocytes # (Auto) 1.5 x10^3/uL (1.0-4.8) Monocytes # (Auto) 0.6 x10^3/uL (0.0-1.1) Eosinophils # (Auto) 0.3 x10^3/uL (0.0-0.7) Basophils # (Auto) 0.1 x10^3/uL (0.0-0.2) Prothrombin Time 16.4 SEC (11.7-14.0) H Prothrombin Time INR 1.4 (0.8-1.1) H Activated Partial Thromboplast Time 34 SEC (24-38) Lactic Acid Level 0.6 mmol/L (0.4-2.0) Sodium Level 141 mmol/L (136-145) Potassium Level 4.7 mmol/L (3.5-5.1) Chloride Level 102 mmol/L (98-107) Carbon Dioxide Level 30 mmol/L (21-32) Anion Gap 9 (6-14) Blood Urea Nitrogen 23 mg/dL (7-20) H Creatinine 1.3 mg/dL (0.6-1.0) H Estimated GFR (Cockcroft-Gault) 40.4 BUN/Creatinine Ratio 18 (6-20) Glucose Level 94 mg/dL (70-99) Calcium Level 9.1 mg/dL (8.5-10.1) Total Bilirubin 1.0 mg/dL (0.2-1.0) Aspartate Amino Transferase (AST) 20 U/L (15-37) Alanine Aminotransferase (ALT) 40 U/L (14-59) Alkaline Phosphatase 128 U/L (46-116) H Troponin I Quantitative < 0.017 ng/mL (0.000-0.055) JE-Bun-D-Type Natriuretic Peptide 106 pg/mL (0-124) Total Protein 7.4 g/dL (6.4-8.2) Albumin 3.7 g/dL (3.4-5.0) Albumin/Globulin Ratio 1.0 (1.0-1.7) Laboratory Tests 10/11/19 17:58 Laboratory Tests 10/11/19 18:50 (VALERI VIGIL MD) Lab Values Laboratory Tests Test 10/11/19 17:45 10/11/19 17:58 10/11/19 18:50 Influenza Type A Antigen Negative (NEGATIVE) Influenza Type B Antigen Negative (NEGATIVE) White Blood Count 8.9 x10^3/uL (4.0-11.0) Red Blood Count 5.27 x10^6/uL (3.50-5.40) Hemoglobin 15.3 g/dL (12.0-15.5) Hematocrit 44.6 % (36.0-47.0) Mean Corpuscular Volume 85 fL (79-100) Mean Corpuscular Hemoglobin 29 pg (25-35) Mean Corpuscular Hemoglobin Concent 34 g/dL (31-37) Red Cell Distribution Width 15.0 % (11.5-14.5) H Platelet Count 162 x10^3/uL (140-400) Neutrophils (%) (Auto) 72 % (31-73) Lymphocytes (%) (Auto) 17 % (24-48) L Monocytes (%) (Auto) 7 % (0-9) Eosinophils (%) (Auto) 4 % (0-3) H Basophils (%) (Auto) 1 % (0-3) Neutrophils # (Auto) 6.4 x10^3/uL (1.8-7.7) Lymphocytes # (Auto) 1.5 x10^3/uL (1.0-4.8) Monocytes # (Auto) 0.6 x10^3/uL (0.0-1.1) Eosinophils # (Auto) 0.3 x10^3/uL (0.0-0.7) Basophils # (Auto) 0.1 x10^3/uL (0.0-0.2) Prothrombin Time 16.4 SEC (11.7-14.0) H Prothrombin Time INR 1.4 (0.8-1.1) H Activated Partial Thromboplast Time 34 SEC (24-38) Lactic Acid Level 0.6 mmol/L (0.4-2.0) Sodium Level 141 mmol/L (136-145) Potassium Level 4.7 mmol/L (3.5-5.1) Chloride Level 102 mmol/L (98-107) Carbon Dioxide Level 30 mmol/L (21-32) Anion Gap 9 (6-14) Blood Urea Nitrogen 23 mg/dL (7-20) H Creatinine 1.3 mg/dL (0.6-1.0) H Estimated GFR (Cockcroft-Gault) 40.4 BUN/Creatinine Ratio 18 (6-20) Glucose Level 94 mg/dL (70-99) Calcium Level 9.1 mg/dL (8.5-10.1) Total Bilirubin 1.0 mg/dL (0.2-1.0) Aspartate Amino Transferase (AST) 20 U/L (15-37) Alanine Aminotransferase (ALT) 40 U/L (14-59) Alkaline Phosphatase 128 U/L (46-116) H Troponin I Quantitative < 0.017 ng/mL (0.000-0.055) YM-Siw-D-Type Natriuretic Peptide 106 pg/mL (0-124) Total Protein 7.4 g/dL (6.4-8.2) Albumin 3.7 g/dL (3.4-5.0) Albumin/Globulin Ratio 1.0 (1.0-1.7) Laboratory Tests 10/11/19 17:58 Laboratory Tests 10/11/19 18:50 (TOYIN CARRILLO APRN) EKG EKG EKG interpreted by Dr. Joshua Machado with rate of 74 (TOYIN CARRILLO APRN) Radiology/Procedures Radiology/Procedures [][facility] [address] [place] [address] IMAGING REPORT Signed PATIENT: FÉLIX PRICE ACCOUNT: [id number] : 1950 LOCATION: ER AGE: 69 SEX: F EXAM STATUS: PRE ER ORD. PHYSICIAN: TOYIN CARRILLO APRN REASON: chest pain, sob PROCEDURE: CHEST PA & LATERAL Study: CHEST PA LATERAL Indication: Chest pain. Shortness of breath. Comparison: CT chest 09/20/2019 Findings: Mild enlargement of the cardiomediastinal silhouette. Aortic vascular calcifications. Similarly configured laya. Streaky densities at both lung bases could represent atelectasis. No large effusion. No pneumothorax. Nodular focus projecting between the right fifth and sixth ribs was present on the 2017 comparison. Impression: Redemonstrated and unchanged enlargement of the cardiomediastinal silhouette. Findings at the lung bases most suggestive of atelectasis. No newly seen abnormality. Electronically signed by: PRICILA FUNG MD (10/11/2019 5:36 PM) [id number] DICTATED and SIGNED BY: PRICILA FUNG MD DATE: 10/11/19 173 (TOYIN CARRILLO APRN) Course & Med Decision Making Course & Med Decision Making Pertinent Labs and Imaging studies reviewed. (See chart for details) Will obtain labs, chest x-ray, and give supportive care. We will also get an EKG. Labs are unremarkable with exception of creatinine being slightly elevated at 1.3. Discussed with patient and ask to drink plenty of water. Discussed with patient that I cannot rule out the coronavirus and recommend that she be quarantined at home for the next 14 days and due to her age and comorbidities to self isolate even after that to avoid catching this. Discussed with the patient to come back to the ER if she becomes more short of breath and to use her inhalers at home. We will not put patient on steroids due to the risk of the coronavirus and steroids based off of research thus far. Patient feels better after breathing treatment and her oxygen saturations have i mproved to 98%. (TOYIN CARRILLO APRN) Dragon Disclaimer Dragon Disclaimer This electronic medical record was generated, in whole or in part, using a voice recognition dictation system. (TOYIN CARRILLO APRN) Departure Departure Impression: Primary Impression: Asthma exacerbation Disposition: 01 HOME, SELF-CARE Condition: STABLE Referrals: PEDRO LUIS CAMPOS MD (PCP) Patient Instructions: Asthma, Adult Additional Instructions: Thank you for visiting [facility]. We appreciate you trusting us with your care. If any additional problems come up don't hesitate to return to visit us. Please follow up with your primary care provider so they can plan additional care if needed and know about the problem that you had. If symptoms worsen come back to the Emergency Department. Any concerning symptoms that start such as chest pain, shortness of air, weakness or numbness on one side of the body, running high fevers or any other concerning symptoms return to the ER. You have a viral syndrome which may include symptoms like muscle aches, fevers, chills, runny nose, cough, sneezing, sore throat, vomiting, or diarrhea. One of the potential viruses that you may have is SARS-CoV-2, the virus that causes COVID-19, also known as the Coronavirus. You are just as likely to have a different viral infection such as the common cold, flu, etc. Most patients with the Coronavirus have mild symptoms and recover on their own. Resting, staying hydrated, and sleep from known cases can be helpful. As of todays visit, you are well enough to go home and treat your symptoms with oral fluids and over the counter medications. Coronavirus testing is not performed on most people with mild symptoms who are being discharged from the emergency department. If Coronavirus testing was performed the results will not be available for possibly up to 2-3 days. If your result is positive you will be contacted. Please follow the following precautions at home: 1) Stay home except to get medical care. 2) As advised by the CDC we recommend you stay in your home and minimize contact with other people. We do not want you to spread the infection. 3) Those who are older or have significant medical issues may have more severe symptoms from this infection. We recommend self-isolation,FOR AT LEAST 7 DAYS after your 1st day of symptoms. AFTER you feel better please wait AT LEAST ANOTHER WEEK before returning to regular activities and being around other pe ople! 4) IF you become sicker and have difficulty breathing, chest pain, unable to eat/drink, severe vomiting, diarrhea, or weakness you may need to return to the Emergency Department. 5) You should restrict activities outside your home, except for getting medical care. DO NOT go to work, school, or public areas. Avoid using public transportation, ride sharing, or taxis. 6) Separate yourself from other people in your home. You should use a separate bathroom if possible. 7) Avoid sharing personal household items such as dishes, cups, eating utensils, towels, etc. 8) Clean all high touch surfaces every day (door knobs, counter tops, etc). Use a household cleaning spray or wipe per label instructions. 9) Clean your hands often. Wash your hands with soap and water for at least 20 seconds. 10) Cover your mouth and nose with a tissue when you cough or sneeze. 11) Throw used tissues in a trash can and immediately wash your hands. For additional resources please visit the CDC website or the [facility] ([phone]). Problem Qualifiers Primary Impression: Asthma exacerbation Asthma severity: mild Asthma persistence: intermittent Qualified Codes: J45.21 - Mild intermittent asthma with (acute) exacerbation TOYIN CARRILLO APRN Oct 11, 2019 17:24 VALERI VIGIL MD Oct 11, 2019 20:30
[2019-10-11] MEDS ORDERED: ALBUTEROL SULFATE 2.5 MG/3 ML NEBU. INH ONE (17:30)
[2019-10-11 17:37] VITALS: BP 172/74
--- NOTE | 2019-10-11 17:39 | RAD ---
Study: CHEST PA LATERAL Indication: Chest pain. Shortness of breath. Comparison: CT chest 09/20/2019 Findings: Mild enlargement of the cardiomediastinal silhouette. Aortic vascular calcifications. Similarly configured laya. Streaky densities at both lung bases could represent atelectasis. No large effusion. No pneumothorax. Nodular focus projecting between the right fifth and sixth ribs was present on the 2017 comparison. Impression: Redemonstrated and unchanged enlargement of the cardiomediastinal silhouette. Findings at the lung bases most suggestive of atelectasis. No newly seen abnormality. Electronically signed by: PRICILA FUNG MD (10/11/2019 5:36 PM) [id number]
[2019-10-11 18:17] LABS: BASO # 0.1 x10^3/uL (0.0-0.2); BASO % 1 % (0-3); EOS # 0.3 x10^3/uL (0.0-0.7); EOS % 4 % (0-3); HEMATOCRIT 44.6 % (36.0-47.0); HEMOGLOBIN 15.3 g/dL (12.0-15.5); LYMPH # 1.5 x10^3/uL (1.0-4.8); LYMPH % 17 % (24-48); MEAN CORPUSCULAR HEMOGLOBIN 29 pg (25-35); MEAN CORPUSCULAR HGB CONC 34 g/dL (31-37); MEAN CORPUSCULAR VOLUME 85 fL (79-100); MONO # 0.6 x10^3/uL (0.0-1.1); MONO % 7 % (0-9); NEUT # 6.4 x10^3/uL (1.8-7.7); NEUT % 72 % (31-73); PLATELET COUNT 162 x10^3/uL (140-400); RED BLOOD COUNT 5.27 x10^6/uL (3.50-5.40); WHITE BLOOD COUNT 8.9 x10^3/uL (4.0-11.0)
[2019-10-11 18:24] LABS: PROTHROMBIN TIME PATIENT 16.4 SEC (11.7-14.0)
[2019-10-11 18:29] LABS: INFLUENZA A PATIENT NEGATIVE (NEGATIVE); INFLUENZA B PATIENT NEGATIVE (NEGATIVE)
[2019-10-11 19:07] LABS: CALCIUM 9.1 mg/dL (8.5-10.1); CREATININE 1.3 mg/dL (0.6-1.0); GFR 40.4; POTASSIUM 4.7 mmol/L (3.5-5.1)
[2019-10-11 19:12] LABS: ALBUMIN 3.7 g/dL (3.4-5.0); TOTAL PROTEIN 7.4 g/dL (6.4-8.2)
--- NOTE | 2019-10-12 21:36 | EKG ---
[facility] [address] [place] [address] Test Date: 2019-10-11 Test Time: 17:43:15 Pat Name: FÉLIX PRICE Department: Room: Gender: F Financial Operations Consultant: : 1950 Requested By: TOYIN CARRILLO Order Number: [id number] Reading MD: Measurements Intervals [place] Rate: 74 P: 56 [place]: 178 QRS: 38 QRSD: 84 T: 33 QT: 354 QTc: 398 Interpretive Statements SINUS RHYTHM QRS(T) CONTOUR ABNORMALITY CONSIDER ANTEROLATERAL MYOCARDIAL DAMAGE T ABNORMALITY IN ANTEROSEPTAL LEADS ABNORMAL ECG RI6.01 No previous ECG available for comparison
== END 2019-10-11 20:20 | disposition home or self-care (01) ==
LOC: ER 16:37
DX: J45.21 Mild intermittent asthma with (acute) exacerbation (principal); R05 Cough; R09.89 Other specified symptoms and signs involving the circulatory and respiratory systems; R53.83 Other fatigue; I11.9 Hypertensive heart disease without heart failure; E78.00 Pure hypercholesterolemia, unspecified; F32.9 Major depressive disorder, single episode, unspecified; Z90.49 Acquired absence of other specified parts of digestive tract; Z98.890 Other specified postprocedural states; Z88.6 Allergy status to analgesic agent; Z91.018 Allergy to other foods
CPT/HCPCS: 36415; 71046; 80053; 83605; 83880; 84145; 84484; 85025; 85610; 85730; 87070; 87804; 87880; 93005; 94640; 99285; J7613

== ENCOUNTER → 2019-12-18 | Outpatient (CLI) | payer BC ==
[~2019-12-18] MED LIST changes: +ALBU2.5V8 IH; +BREO ELLIPTA 11 EACH IH; +FLUO20CA20 PO; +RIVA20TA2 PO
== END | disposition home or self-care (01) ==
LOC: LAB 12:28
PROVIDERS: ATTEND Internal Medicine Gastroenterology
DX: Z03.818 Encounter for observation for suspected exposure to other biological agents ruled out (principal); R93.3 Abnormal findings on diagnostic imaging of other parts of digestive tract
CPT/HCPCS: C9803; U0003; 36415

== ENCOUNTER → 2019-12-20 | Day surgery (SDC) | payer BC ==
[~2019-12-20] MED LIST changes: +IV RINGERS,LACTATED 1000ML 1,000 ML IV SCH; +PROPOFOL 10 MG/ML (20ML) VIAL. IV ONE
[2019-12-20 09:48] VITALS: BP 145/68
--- NOTE | 2019-12-20 10:42 | CONS ---
DATE OF CONSULTATION: 12/20/2019 REFERRING PHYSICIAN: Dr. Noel Harding. REASON FOR CONSULTATION: Colorectal screening as well as an abnormal CT scan with possible duodenal polypoid lesion of the ampulla. HISTORY OF PRESENT ILLNESS: The patient's bowel habits have been regular without diarrhea or constipation. There has been no melena and/or hematochezia. Weight and appetite are stable. She is on Xarelto for pulmonary embolism in late last year and this has been only held for the past 24 hours. No bleeding, no additional complaints are presently noted. PAST MEDICAL HISTORY: COPD, GERD, hyperlipidemia, and pulmonary emboli. ALLERGIES: ACETAMINOPHEN AND CAFFEINE. MEDICATIONS: Include albuterol, aspirin, fexofenadine, Prozac, Lasix, omeprazole, propranolol, Xarelto, calcium and Zoloft. PAST SURGICAL HISTORY: Significant for cardiac stents, breast biopsy, cholecystectomy, tonsillectomy, and eye surgery. FAMILY HISTORY: Significant for myocardial infarction in multiple family members, breast cancer with her mother, ovarian cancer with her mother. REVIEW OF SYSTEMS: Per records. PHYSICAL EXAMINATION: GENERAL: Reveals a well-nourished, well-developed female who is alert, cooperative, in no acute distress. VITAL SIGNS: Pulse 80, respirations 15, and blood pressure is 130/80. LUNGS: Clear. CARDIOVASCULAR: Reveals an S1, S2 without S3, S4 or appreciable murmur. ABDOMEN: With a soft abdomen, normal bowel sounds, without appreciable hepatosplenomegaly. IMPRESSION: 1. Colorectal screening is warranted at this time. Xarelto has been held for only 24 hours, endoclipping will be utilized if polyps are found to minimize the risk of post-procedure bleeding. 2. Abnormal CT scan of the duodenum. We will recommend endoscopic visualization rule out an ampullary lesion polyps and potential dilatation for a reported dysphagia since her first visit. MARY ALARCON MD DR: KEKE/armida JOB#: [id number] / [id number] ecc ,
== END | disposition home or self-care (01) ==
LOC: ENDOS 07:53
PROVIDERS: ATTEND Internal Medicine Gastroenterology
DX: Z12.11 Encounter for screening for malignant neoplasm of colon (principal); K64.0 First degree hemorrhoids; K57.30 Diverticulosis of large intestine without perforation or abscess without bleeding; K29.50 Unspecified chronic gastritis without bleeding; J44.9 Chronic obstructive pulmonary disease, unspecified; K21.9 Gastro-esophageal reflux disease without esophagitis; E78.5 Hyperlipidemia, unspecified; Z88.8 Allergy status to other drugs, medicaments and biological substances; Z91.018 Allergy to other foods; Z79.82 Long term (current) use of aspirin; Z90.49 Acquired absence of other specified parts of digestive tract; Z86.711 Personal history of pulmonary embolism; Z80.41 Family history of malignant neoplasm of ovary; Z80.3 Family history of malignant neoplasm of breast
CPT/HCPCS: 43235; 45378; J2704

== ENCOUNTER 2021-01-29 02:37 | Emergency (ER) | payer BC, MEDICARE ==
[~2021-01-29] VITALS: Ht 165.1 cm; Wt 106.2 kg
[~2021-01-29 02:37] MED LIST changes: -IV RINGERS,LACTATED 1000ML 1,000 ML IV SCH; -PROPOFOL 10 MG/ML (20ML) VIAL. IV ONE
--- NOTE | 2021-01-29 03:06 | PHYS DOC ---
Past Medical History Past Medical History: CAD, Depression, High Cholesterol, Heart Disease, H ypertension, Other Additional Past Medical Histor: sleep apnea (LAURA MARQUEZ DO) Past Surgical History: Cholecystectomy, Other Additional Past Surgical Histo: breast biopsy, cardiac cath with stent placement (LAURA MARQUEZ DO) Smoking Status: Never Smoker Alcohol Use: Rarely Drug Use: None (LAURA MARQUEZ DO) General Adult EDM: Chief Complaint: LOWER EXT PAIN HPI: HPI: Patient is a 70 year old female who presented to ER for evaluation of right lower extremity pain that woke her up from her sleep tonight. Pain right behind her right knee area. Patient says she was here last year for the same problem, diagnosed with DVT. 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 Patient is currently on Xarelto.. Patient denies any chest pain, no abdominal pain, no trouble breathing. (LAURA MARQUEZ DO) Review of Systems: Review of Systems: Constitutional: Denies fever or chills. [] Eyes: Denies change in visual acuity. [] HENT: Denies nasal congestion or sore throat. [] Respiratory: Denies cough or shortness of breath. [] Cardiovascular: Denies chest pain or edema. [] GI: Denies abdominal pain, nausea, vomiting, bloody stools or diarrhea. [] : Denies dysuria. [] Musculoskeletal: Denies back pain or joint pain. Positive for right leg pain. Integument: Denies rash. [] Neurologic: Denies headache, focal weakness or sensory changes. [] Endocrine: Denies polyuria or polydipsia. [] Lymphatic: Denies swollen glands. [] Psychiatric: Denies depression or anxiety. [] (LAURA MARQUEZ DO) Heart Score: C/O Chest Pain: N/A Risk Factors: Risk Factors: DM, Current or recent (<one month) smoker, HTN, HLP, family history of CAD, obesity. Risk Scores: Score 0 - 3: 2.5% MACE over next 6 weeks - Discharge Home Score 4 - 6: 20.3% MACE over next 6 weeks - Admit for Clinical Observation Score 7 - 10: 72.7% MACE over next 6 weeks - Early Invasive Strategies (LAURA MARQUEZ DO) C/O Chest Pain: No (TRINY CASAREZ MD) Allergies: Allergies: Allergies Coded Allergies Type Severity Reaction Last Updated Verified acetaminophen Allergy Unknown 08/08/19 Yes caffeine Allergy Unknown 08/08/19 Yes (LAURA MARQUEZ DO) Physical Exam: PE: Constitutional: Well developed, well nourished, no acute distress, non-toxic john earance. [] HENT: Normocephalic, atraumatic, bilateral external ears normal, oropharynx moist, no oral exudates, nose normal. [] Eyes: PERRLA, EOMI, conjunctiva normal, no discharge. [] Neck: Normal range of motion, no tenderness, supple, no stridor. [] Cardiovascular:Heart rate regular rhythm, no murmur [] Lungs & Thorax: Bilateral breath sounds clear to auscultation [] Abdomen: Bowel sounds normal, soft, no tenderness, no masses, no pulsatile masses. [] Skin: Warm, dry, no erythema, no rash. [] Back: No tenderness, no CVA tenderness. [] Extremities: there is tenderness to palpation on popliteal area of right leg, felt like a knot there. Neurologic: Alert and oriented X 3, normal motor function, normal sensory function, no focal deficits noted. [] Psychologic: Affect normal, judgement normal, mood normal. [] (LAURA MARQUEZ DO) Current Patient Data: Vital Signs: Vital Signs Date Time Temp Pulse Resp B/P (MAP) Pulse Ox O2 Delivery O2 Flow Rate FiO2 01/29/21 02:48 98.2 65 29 138/65 (89) 96 Room Air 98.2 (LAURA MARQUEZ DO) EKG: EKG: [] (LAURA MARQUEZ DO) Radiology/Procedures: Radiology/Procedures: [] (LAURA MARQUEZ DO) Radiology/Procedures: [facility] [address] [place] [address] IMAGING REPORT Signed PATIENT: FÉLIX PRICE ACCOUNT: [id number] : 1950 LOCATION: ER AGE: 70 SEX: F EXAM STATUS: REG ER ORD. PHYSICIAN: LAURA MARQUEZ DO REASON: right leg pain, back of right knee, hx of DVT PROCEDURE: VENOUS LOWER EXTREMITY RIGHT Exam: US DPLX VENOUS EXTREMITY LOWER RT Indication: right leg pain, back of right knee, hx of DVT Technique: Color-flow and pulsed wave duplex ultrasound with compression of venous structures of the right lower extremity. Comparison: None Available. Findings: Duplex ultrasound with compression of the deep venous structures of the right lower extremity from the common femoral vein through the popliteal vein is negative for DVT. The posterior tibial and peroneal veins are segmentally visualized and patent where seen. Normal venous waveforms and augmentation are noted throughout. Impression: No evidence for DVT in the right lower extremity. Electronically signed by: Gloria Baptiste MD (01/29/2021 6:12 AM) [facility] DICTATED and SIGNED BY: GLORIA BAPTISTE MD DATE: 01/29/21 [id number] (TRINY CASAREZ MD) Course & Med Decision Making: Course & Med Decision Making Pertinent Labs and Imaging studies reviewed. (See chart for details) Patient is a 70-year-old female who presented to ER due to right popliteal area pain, awaiting ultrasound of her right lower extremity, patient care was endorsed to incoming physician at shift change Dr. Triny Casarez (LAURA MARQUEZ DO) Dragon Disclaimer: Dragewelina Disclaimer: This electronic medical record was generated, in whole or in part, using a voice recognition dictation system. (LAURA MARQUEZ DO) Departure Departure Impression: Primary Impression: Leg pain Disposition: 01 HOME / SELF CARE / HOMELESS Condition: STABLE Referrals: PEDRO LUIS CAMPOS MD (PCP) Patient Instructions: Lenz's LAURA Wyatt DO Jan 29, 2021 03:06 TRINY CASAREZ MD Jan 29, 2021 06:38
[2021-01-29 06:15] VITALS: BP 122/52
--- NOTE | 2021-01-29 06:15 | RAD ---
Exam: US DPLX VENOUS EXTREMITY LOWER RT Indication: right leg pain, back of right knee, hx of DVT Technique: Color-flow and pulsed wave duplex ultrasound with compression of venous structures of th e right lower extremity. Comparison: None Available. Findings: Duplex ultrasound with compression of the deep venous structures of the right lower extremi ty from the common femoral vein through the popliteal vein is negative for DVT. The posterior tibial and peroneal veins are segmentally visualized and patent where seen. Normal venous waveforms and augm entation are noted throughout. Impression: No evidence for DVT in the right lower extremity. Electronically signed by: Poncho Baptiste MD (01/29/2021 6:12 AM) [facility]
== END 2021-01-29 06:43 | disposition home or self-care (01) ==
LOC: ER 02:37
DX: M79.661 Pain in right lower leg (principal); I11.9 Hypertensive heart disease without heart failure; E78.00 Pure hypercholesterolemia, unspecified; I25.10 Atherosclerotic heart disease of native coronary artery without angina pectoris; Z88.6 Allergy status to analgesic agent; Z91.018 Allergy to other foods
CPT/HCPCS: 93971; 99285-25

== ENCOUNTER → 2021-12-01 | Outpatient (CLI) | payer BC ==
[~2021-12-01] MED LIST changes: +FEXO-213 PO; -FEXO180T16 PO; -FLUO20CA20 PO; +FLUO20CA22 PO
--- NOTE | 2021-12-01 12:46 | KCIC ---
INDICATION: 71 years of age asymptomatic female patient presents for screening mammography. Family hi story of breast cancer in mother in her 60s. TECHNIQUE: Full field craniocaudal and mediolateral oblique images of both breasts were obtained usi ng digital technique with tomosynthesis and also analyzed with computer-aided detection software. COMPARISON: Prior mammographic imaging dating back to 05/07/2015. BREAST COMPOSITION: Category B: There are scattered fibroglandular densities. FINDINGS: The parenchymal pattern appears stable. Benign calcifications are present. No suspicious masses, microcalcifications or architectural distortion is present to suggest malignanc y in either breast. The visualized axillae are unremarkable. IMPRESSION: No mammographic evidence of malignancy. RECOMMENDATION: Annual screening mammography is recommended, unless clinically indicated sooner based on symptoms or change in physical exam. BIRADS 2: BENIGN This study was interpreted with the benefit of Computerized Aided Detection (CAD). Patient information is entered into the reminder system with a target due date for the next screening mammogram. Mammography is the most sensitive method for finding small breast cancers, but it does not detect the m all and is not a substitute for careful clinical examination. A negative mammogram does not negate a clinically suspicious finding and should not result in delay in biopsying a clinically suspicious a bnormality. "Our facility is accredited by the [employer] Mammography Program." Electronically signed by: Viktor Christopher DO (12/01/2021 12:44 PM) [id number]
--- NOTE | 2021-12-01 15:59 | KCIC ---
Bone Densitometry History: Reason: POST MENOPAUSAL / Spl. Instructions: / History: Findings: Bone Densitometry was performed with dual photon absorption of the lumbar spine and proximal femurs. Lumbar Spine: Bone density is 1.132 g/cm2 for L1-L4. T-score is 0.8. Z-score is 3.1. This is a 2.6 percent decrease from baseline on 05/25/2017 and a 3.7 percent decrease from 09/02/2019. Total left hip: Bone density is 0.783 g/cm2. T-score is -1.3. Z-score is 0.4. This is a 1.5 percent decrease from ba seline on 05/25/2017 and 2.3 percent decrease from 09/02/2019. IMPRESSION: Osteopenia in the left hip. Normal bone mineral density in the lumbar spine. World Health Organization definition of osteoporosis and osteopenia for women: normal equal s T score at or above -1.0 standard deviations; osteopenia equals T score between -1.0 and -2.5 stand radha deviations; osteoporosis equals T score at or below -2.5 standard deviations. Electronically signed by: Triny Almaguer MD (12/01/2021 3:56 PM) [id number]
== END ==
LOC: KCIC DEXA 08:50
PROVIDERS: ATTEND Family Medicine
DX: Z12.31 Encounter for screening mammogram for malignant neoplasm of breast (principal); M85.88 Other specified disorders of bone density and structure, other site; Z78.0 Asymptomatic menopausal state
CPT/HCPCS: 77063; 77067; 77080